=== PATIENT | female | born 1940 | race Caucasian/White ===

== ENCOUNTER 2016-06-15 17:39 | Inpatient (IN) | payer OTHER, BC ==
[~2016-06-15] VITALS: Ht 152.4 cm; Wt 85.6 kg
[~2016-06-15 17:39] MED LIST: ACETAMINOPHN-T1 EACH PO; ALENDRONATE SOD35 MG PO; ALLEGRA ODT30 MG PO; AMIODARONE HCL200 MG PO; ASPIR 8181 M1 PO; ASPIR-LOW81 MG PO; AUGMENTIN875 MG PO; AVAPRO300 MG PO; AVAPRO75 MG PO; CALCIUM + D 601 EACH PO; CALCIUM 500 MG1 EACH PO; CALCIUM 600 +1 EAC4 PO; CALCIUM 600 MG1 EAC1 PO; CARDIZEM CD,CA120 MG PO; CARDIZEM CD120 MG PO; CYCLOBENZAPRINE10 M1 PO; CYCLOBENZAPRINE10 MG PO; DICYCLOMINE HCL10 MG PO; DOXYCYCLINE HY100 M3 PO; ENDOCET 5-3251 EACH PO; ERGOCALCIF50000 UNIT PO; FEOSOL325 MG PO; FLEXERIL10 MG PO; FOSAMAX35 MG PO; FUROSEMIDE20 MG PO; FUROSEMIDE40 MG PO; GLUCOPHAGE500 MG PO; HYDROCHLOROTH12.5 M3 PO; HYDROCODON-ACE1 EACH PO; IRBESARTAN75 MG PO; IRON325 M1 PO; Keflex PO; LANOXIN,DIGIT0.25 MG PO; LASIX40 MG PO; LEVOTHYROXINE50 MCG PO; LEVOTHYROXINE75 MCG PO; LO-DOSE ASPIRIN81 M1 PO; LOPRESSOR100 M1 PO; LORAZEPAM0.5 MG PO; Lopressor PO; METOPROLOL SUC100 MG PO; METOPROLOL TAR100 MG PO; MICROZIDE12.5 MG PO; NEXIUM40 MG PO; OMEPRAZOLE40 M1 PO; ONDANSETRON HCL4 M2 PO; ONDANSETRON HCL4 MG PO; PACERONE200 MG PO; PERCOCET 5/31 TABLET PO; PRADAXA150 MG PO; PRESTIQ PO; PRILOSEC OTC20 MG PO; PRISTIQ100 MG PO; Pradaxa PO; QUINAPRIL HCL40 MG PO; SIMVASTATIN20 M1 PO; SIMVASTATIN20 MG PO; SUCRALFATE1 GM PO; SULCRAFATE PO; TOPROL XL100 MG PO; TYLENOL EXTRA500 MG PO; TYLENOL PM1 CAPLET PO; TYLENOL REGULA325 MG PO; VENLAFAXINE HCL75 M3 PO; VICODIN,LORT1 TABLET PO; VITAMIN D250000 UNIT PO; ZOCOR20 MG PO; ZOFRAN4 MG PO; ZUPLENZ4 MG PO; [UNRECOGNIZED DRUG - OTHER] PO
[2016-06-15 20:05] LABS: EOSINOPHIL (%) 0.4 % (0-5); HEMATOCRIT 38.3 % (36.0-46.0); IMMATURE GRANULOCYTE (%) 0.4 % (0.0-0.7); IMMATURE GRANULOCYTE COUNT 0.2 K/uL; LYMPHOCYTE COUNT 0.7 K/uL (1.0-2.8); MCH 28.7 PG (29.0-34.0); MCHC 30.8 G/DL (30.0-36.0); MCV 93.2 FL (83-99); MEAN PLAT.VOLUME 10.5 uM^3 (9.5-12.4); MONOCYTE (%) 3.2 % (3-12); MONOCYTE COUNT 0.2 K/uL (0-0.8); NEUTROPHIL (%) 82.1 % (45-76); NEUTROPHIL COUNT 4.4 K/uL (1.8-6.4); PLATELET COUNT 158 K/uL (156-360); RBC DIS.WIDTH-CV 15.8 % (11.8-14.6); RBC DIS.WIDTH-SD 51.1 % (39-53); RED BLOOD COUNT 4.11 M/uL (3.80-5.20); WHITE BLOOD COUNT 5.3 K/uL (4.1-10.2)
[2016-06-15 20:30] LABS: TROP-I INTERPRETATION NEGATIVE; TROPONIN-I < 0.01 ng/mL (0.0-0.30)
[2016-06-15 20:42] LABS: CHLORIDE 104 mEq/L (99-109); POTASSIUM 4.4 mEq/L (3.7-5.4); SODIUM 141 mEq/L (136-147)
[2016-06-15 20:44] LABS: GLUCOSE 132 mg/dL (70-99)
[2016-06-15 20:45] LABS: ANION GAP 10 MEQ/L (2-14)
[2016-06-15 20:46] LABS: TOTAL BILIRUBIN 0.3 mg/dL (0.0-1.0)
[2016-06-15 20:48] LABS: ALKALINE PHOSPHATASE 101 IU/L (3-129); GFR ESTIMATE (CALCULATED) 51 mL/min/
[2016-06-15 20:49] LABS: UREA NITROGEN (BUN) 24 mg/dL (9-23)
[2016-06-15] MEDS ORDERED: CORICIDIN HBP1 EAC5 PO (23:13)
[2016-06-15] MEDS ORDERED: VIBRAMYCIN100 MG PO (23:14)
[2016-06-15] MEDS ORDERED: COUGH DROPS1 EAC1 MM (23:15)
[2016-06-15] MEDS ORDERED: LIDODERM 5% P1 PATCH TD (23:15)
[2016-06-16 05:29] LABS: ADD MIUA? YES; BILIRUBIN NEGATIVE; BLOOD TRACE; COLOR YELLOW ((YELLOW)); GLUCOSE (STRIP) >=1000; KETONES NEGATIVE; LEUKOCYTES NEGATIVE; NITRITE NEGATIVE; PH, URINE 5.5 (5-8); PROTEIN (STRIP) TRACE; SPECIFIC GRAVITY 1.023 (1.000-1.030); UROBILINOGEN 0.2 MG/DL (0.2-1.0)
[2016-06-16 05:48] LABS: BACTERIA 2+; CASTS PRESENT /LPF; CRYSTALS NONE SEEN; EPITHELIAL CELLS 2+; HYALINE CASTS RARE /LPF; MUCUS NONE SEEN; RED BLOOD CELLS 0-5 /HPF (0-5); UCUL ADDED? NO; WHITE BLOOD CELLS 0-5 /HPF (0-5)
[2016-06-16 06:58] LABS: INTERNAL CONTROL VALID? YES
[2016-06-16 16:50] VITALS: BP 125/69
[2016-06-16 17:17] LABS: TROP-I INTERPRETATION NEGATIVE; TROPONIN-I < 0.01 ng/mL (0.0-0.30)
[2016-06-16 20:17] VITALS: BP 135/66
[2016-06-17] VITALS: BP 157/70
[2016-06-17 04:00] VITALS: BP 158/70
[2016-06-17 06:31] LABS: EOSINOPHIL (%) 0 % (0-5); HEMATOCRIT 40.4 % (36.0-46.0); IMMATURE GRANULOCYTE (%) 0.2 % (0.0-0.7); LYMPHOCYTE COUNT 0.6 K/uL (1.0-2.8); MCH 28.4 PG (29.0-34.0); MCV 94.8 FL (83-99); MEAN PLAT.VOLUME 10.9 uM^3 (9.5-12.4); MONOCYTE (%) 2.1 % (3-12); MONOCYTE COUNT 0.2 K/uL (0-0.8); NEUTROPHIL (%) 92.2 % (45-76); NEUTROPHIL COUNT 10.1 K/uL (1.8-6.4); PLATELET COUNT 173 K/uL (156-360); RBC DIS.WIDTH-SD 55.2 % (39-53); RED BLOOD COUNT 4.26 M/uL (3.80-5.20)
[2016-06-17 06:34] LABS: WHITE BLOOD COUNT 10.9 K/uL (4.1-10.2)
[2016-06-17 06:53] LABS: ANION GAP 8 MEQ/L (2-14); CHLORIDE 103 MEQ/L (99-109); GFR ESTIMATE (CALCULATED) 46 mL/min/; GLUCOSE 207 mg/dL (70-99); POTASSIUM 4.7 MEQ/L (3.7-5.4); SAMPLE HEMOLYSIS CHECK 1; SAMPLE ICTERIC CHECK 0; SAMPLE LIPEMIA CHECK 0; SODIUM 139 MEQ/L (136-147); UREA NITROGEN (BUN) 38 mg/dL (9-23)
[2016-06-17 07:29] VITALS: BP 139/63
[2016-06-17 11:02] VITALS: BP 116/77
[2016-06-17 14:57] VITALS: BP 112/70
[2016-06-17 20:00] VITALS: BP 126/70
[2016-06-18] VITALS: BP 137/70
[2016-06-18 07:01] LABS: EOSINOPHIL (%) 0 % (0-5); HEMATOCRIT 40.3 % (36.0-46.0); IMMATURE GRANULOCYTE (%) 0.4 % (0.0-0.7); IMMATURE GRANULOCYTE COUNT 0.1 K/uL; LYMPHOCYTE COUNT 0.6 K/uL (1.0-2.8); MCH 29.5 PG (29.0-34.0); MCHC 30.8 G/DL (30.0-36.0); MCV 95.7 FL (83-99); MEAN PLAT.VOLUME 11.5 uM^3 (9.5-12.4); MONOCYTE (%) 1.7 % (3-12); MONOCYTE COUNT 0.2 K/uL (0-0.8); NEUTROPHIL (%) 92.8 % (45-76); NEUTROPHIL COUNT 11.5 K/uL (1.8-6.4); PLATELET COUNT 202 K/uL (156-360); RBC DIS.WIDTH-CV 15.9 % (11.8-14.6); RBC DIS.WIDTH-SD 55.2 % (39-53); RED BLOOD COUNT 4.21 M/uL (3.80-5.20); WHITE BLOOD COUNT 12.3 K/uL (4.1-10.2)
[2016-06-18 07:21] LABS: ANION GAP 10 MEQ/L (2-14); CHLORIDE 103 MEQ/L (99-109); GFR ESTIMATE (CALCULATED) 46 mL/min/; GLUCOSE 212 mg/dL (70-99); MAGNESIUM 2.2 mg/dl (1.3-2.7); POTASSIUM 4.8 MEQ/L (3.7-5.4); SAMPLE HEMOLYSIS CHECK 0; SAMPLE ICTERIC CHECK 0; SAMPLE LIPEMIA CHECK 0; SODIUM 140 MEQ/L (136-147); UREA NITROGEN (BUN) 49 mg/dL (9-23)
[2016-06-18 07:34] VITALS: BP 180/79
[2016-06-18 15:45] VITALS: BP 152/82
[2016-06-18 23:44] VITALS: BP 130/90
[2016-06-19 07:03] LABS: EOSINOPHIL (%) 0 % (0-5); HEMATOCRIT 40.1 % (36.0-46.0); IMMATURE GRANULOCYTE (%) 0.8 % (0.0-0.7); IMMATURE GRANULOCYTE COUNT 0.1 K/uL; LYMPHOCYTE COUNT 0.5 K/uL (1.0-2.8); MCH 28.6 PG (29.0-34.0); MCHC 30.7 G/DL (30.0-36.0); MCV 93.3 FL (83-99); MEAN PLAT.VOLUME 10.7 uM^3 (9.5-12.4); MONOCYTE (%) 2.9 % (3-12); MONOCYTE COUNT 0.3 K/uL (0-0.8); NEUTROPHIL (%) 90.9 % (45-76); NEUTROPHIL COUNT 8.2 K/uL (1.8-6.4); PLATELET COUNT 202 K/uL (156-360); RBC DIS.WIDTH-CV 15.7 % (11.8-14.6); RBC DIS.WIDTH-SD 52.5 % (39-53)
[2016-06-19 07:31] VITALS: BP 179/80
[2016-06-19 08:27] LABS: ANION GAP 13 MEQ/L (2-14); CHLORIDE 101 MEQ/L (99-109); GFR ESTIMATE (CALCULATED) 51 mL/min/; GLUCOSE 217 mg/dL (70-99); POTASSIUM 4.4 MEQ/L (3.7-5.4); SAMPLE HEMOLYSIS CHECK 0; SAMPLE ICTERIC CHECK 0; SAMPLE LIPEMIA CHECK 0; SODIUM 139 MEQ/L (136-147); UREA NITROGEN (BUN) 47 mg/dL (9-23)
[2016-06-19] MEDS ORDERED: ADVAIR HFA120 INHALA IH (13:00)
[2016-06-19] MEDS ORDERED: PREDNISONE10 MG PO (13:00)
[2016-06-19] MEDS ORDERED: SPIRIVA RESPIMAT4 GM IH (13:00)
[2016-06-19] MEDS ORDERED: PACERONE200 MG PO (13:00)
== END 2016-06-19 14:22 | disposition home or self-care (01) | DRG 191 ==
LOC: EME 17:39 → EDOF 06-16 04:00 → 5SOUTH 06-16 04:00 → EDOF 06-16 11:34 → 5SOUTH 06-16 16:22
PROVIDERS: Emergency Medicine; Hospitalist; Internal Medicine
DX: J44.0 Chronic obstructive pulmonary disease with (acute) lower respiratory infection (principal); J20.9 Acute bronchitis, unspecified; I11.0 Hypertensive heart disease with heart failure; I50.22 Chronic systolic (congestive) heart failure; K59.00 Constipation, unspecified; D72.829 Elevated white blood cell count, unspecified; T38.0X5A Adverse effect of glucocorticoids and synthetic analogues, initial encounter; E11.9 Type 2 diabetes mellitus without complications; K21.9 Gastro-esophageal reflux disease without esophagitis; G89.29 Other chronic pain; J44.1 Chronic obstructive pulmonary disease with (acute) exacerbation; I48.0 Paroxysmal atrial fibrillation; Z79.01 Long term (current) use of anticoagulants; Z77.22 Contact with and (suspected) exposure to environmental tobacco smoke (acute) (chronic); I25.10 Atherosclerotic heart disease of native coronary artery without angina pectoris; E78.5 Hyperlipidemia, unspecified; I27.2 Other secondary pulmonary hypertension; F32.9 Major depressive disorder, single episode, unspecified; E66.9 Obesity, unspecified; Z68.36 Body mass index [BMI] 36.0-36.9, adult
CPT/HCPCS: 71010; 80048; 80053; 81003; 83735; 83880; 84484; 85025; 87070; 87205; 87449; 93005; 94640; 94640 76; 94644; 94799; 99202; 99281; 99285; J0696; J1100; J2920; J2930; J7050; J7512; J7644

== ENCOUNTER 2017-03-21 19:15 | Emergency (ER) | payer OTHER, BC ==
[~2017-03-21] VITALS: Ht 152.4 cm; Wt 89.1 kg
[~2017-03-21 19:15] MED LIST changes: +ADVAIR HFA120 INHALA IH; +CORICIDIN HBP1 EAC5 PO; +COUGH DROPS1 EAC1 MM; +LIDODERM 5% P1 PATCH TD; +PREDNISONE10 MG PO; +SPIRIVA RESPIMAT4 GM IH; +VIBRAMYCIN100 MG PO
[2017-03-21 22:02] LABS: HEMATOCRIT 40.4 % (36.0-46.0); MCH 26.9 PG (29.0-34.0); MCHC 30.2 G/DL (30.0-36.0); MCV 89.2 FL (83-99); PLATELET COUNT 278 K/uL (156-360); RBC DIS.WIDTH-CV 14.9 % (11.8-14.6); RED BLOOD COUNT 4.53 M/uL (3.80-5.20); WHITE BLOOD COUNT 10.2 K/uL (4.1-10.2)
[2017-03-21 22:15] LABS: CHLORIDE 105 mEq/L (99-109); POTASSIUM 4.1 mEq/L (3.7-5.4); SODIUM 143 mEq/L (136-147)
[2017-03-21 22:17] LABS: GLUCOSE 122 mg/dL (70-99)
[2017-03-21 22:18] LABS: ANION GAP 10 MEQ/L (2-14)
[2017-03-21 22:21] LABS: GFR ESTIMATE (CALCULATED) 46 mL/min/
[2017-03-21 22:22] LABS: UREA NITROGEN (BUN) 26 mg/dL (9-23)
[2017-03-22] MEDS ORDERED: PERCOCET 5/31 TABLET PO (00:30)
[2017-03-22] MEDS ORDERED: COLACE100 MG PO (00:30)
[2017-03-22 01:13] VITALS: BP 184/85
== END 2017-03-22 01:13 | disposition home or self-care (01) ==
LOC: RME 19:15 → EME 19:15 → RME 03-22 01:13
PROVIDERS: Physician Assistant
PROC: 3E0234Z Introduction of Serum, Toxoid and Vaccine into Muscle, Percutaneous Approach (ICD-10-PCS; principal; 2017-03-21)
DX: S20.212A Contusion of left front wall of thorax, initial encounter (principal); S60.312A Abrasion of left thumb, initial encounter; S22.32XD Fracture of one rib, left side, subsequent encounter for fracture with routine healing; Z23 Encounter for immunization; W01.190A Fall on same level from slipping, tripping and stumbling with subsequent striking against furniture, initial encounter; E11.9 Type 2 diabetes mellitus without complications; I11.0 Hypertensive heart disease with heart failure; I50.9 Heart failure, unspecified; K21.9 Gastro-esophageal reflux disease without esophagitis; F41.9 Anxiety disorder, unspecified; Z87.442 Personal history of urinary calculi
CPT/HCPCS: 71101; 73060; 74177; 80048; 85027; 86850; 86900; 86901; 99281; 99285; J2405; J3010; J7040

== ENCOUNTER 2017-06-16 09:24 | Day surgery (SDC) | payer OTHER, BC ==
[~2017-06-16] VITALS: Ht 152.4 cm; Wt 82.0 kg
[~2017-06-16 09:24] MED LIST changes: +COLACE100 MG PO; +LASIX20 MG PO; +PROVENTIL,2.5 MG/3 M IH
== END 2017-06-16 12:33 | disposition home or self-care (01) ==
LOC: CATH 09:24
PROC: 5A2204Z Restoration of Cardiac Rhythm, Single (ICD-10-PCS; principal; 2017-06-16)
DX: I48.1 Persistent atrial fibrillation (principal); I25.10 Atherosclerotic heart disease of native coronary artery without angina pectoris; I13.0 Hypertensive heart and chronic kidney disease with heart failure and stage 1 through stage 4 chronic kidney disease, or unspecified chronic kidney disease; E11.22 Type 2 diabetes mellitus with diabetic chronic kidney disease; I50.42 Chronic combined systolic (congestive) and diastolic (congestive) heart failure; N18.9 Chronic kidney disease, unspecified; I35.0 Nonrheumatic aortic (valve) stenosis; I27.20 Pulmonary hypertension, unspecified; K21.9 Gastro-esophageal reflux disease without esophagitis; D64.9 Anemia, unspecified; E78.2 Mixed hyperlipidemia; I44.4 Left anterior fascicular block; Z79.02 Long term (current) use of antithrombotics/antiplatelets; E66.9 Obesity, unspecified; Z68.35 Body mass index [BMI] 35.0-35.9, adult
CPT/HCPCS: 93005

== ENCOUNTER → 2017-12-15 | Outpatient (CLI) | payer OTHER, BC | END | disposition home or self-care (01) | LOC: RES 12:46 | DX: R06.00 Dyspnea, unspecified (principal); Z79.899 Other long term (current) drug therapy | CPT/HCPCS: 94060; 94726; 94729 ==